=== PATIENT | female | born 1960 | race Caucasian/White ===

== ENCOUNTER 2018-03-27 11:36 | Emergency (ER) | payer OTHER ==
[~2018-03-27] VITALS: Ht 152.4 cm; Wt 56.7 kg
[~2018-03-27 11:36] MED LIST: NORVASC2.5 M1
[2018-03-27] MEDS ORDERED: SINGULAIR10 MG (12:00)
== END 2018-03-27 14:22 | disposition home or self-care (01) ==
LOC: ER 11:36
DX: N39.0 Urinary tract infection, site not specified (principal)

== ENCOUNTER 2018-04-11 08:17 | Outpatient (CLI) | payer OTHER ==
[~2018-04-11 08:17] MED LIST changes: +SINGULAIR10 MG
== END 2018-04-11 08:30 | disposition home or self-care (01) ==
LOC: TOM 08:17
DX: N20.0 Calculus of kidney (principal); N39.0 Urinary tract infection, site not specified

== ENCOUNTER 2018-10-31 12:18 | Outpatient (CLI) | payer OTHER | END 2018-10-31 12:28 | disposition home or self-care (01) | LOC: RAD 12:18 | DX: N20.0 Calculus of kidney (principal) ==

== ENCOUNTER 2018-11-19 10:08 | Day surgery (SDC) | payer OTHER ==
[2018-11-20] MEDS ORDERED: CIPRO500 MG PO (20:10)
== END 2018-11-19 18:30 | disposition home or self-care (01) ==
LOC: CIR.AMB 10:08
DX: N20.0 Calculus of kidney (principal); N20.1 Calculus of ureter

== ENCOUNTER 2018-11-20 19:41 | Emergency (ER) | payer OTHER ==
[~2018-11-20] VITALS: Ht 152.4 cm; Wt 56.7 kg
[2018-11-20] MEDS ORDERED: CIPRO500 MG PO (20:10)
== END 2018-11-21 10:45 | disposition home or self-care (01) ==
LOC: ER 19:41
DX: R50.82 Postprocedural fever (principal)

== ENCOUNTER → 2018-11-24 11:49 | Outpatient (CLI) | payer OTHER ==
[~2018-11-24 11:49] MED LIST changes: +CIPRO500 MG PO
== END | disposition home or self-care (01) ==
LOC: LAB 11:49
DX: D62 Acute posthemorrhagic anemia (principal)

== ENCOUNTER 2019-01-08 13:35 | Outpatient (CLI) | payer OTHER | END 2019-01-08 13:44 | disposition home or self-care (01) | LOC: RAD 13:35 | DX: N20.0 Calculus of kidney (principal) ==

== ENCOUNTER → 2019-01-08 17:15 | Outpatient (CLI) | payer OTHER | END | disposition home or self-care (01) | LOC: LAB 17:15 | DX: N30.00 Acute cystitis without hematuria (principal) ==

== ENCOUNTER → 2019-01-15 15:37 | Outpatient (CLI) | payer OTHER | END | disposition home or self-care (01) | LOC: LAB 15:37 | DX: N30.10 Interstitial cystitis (chronic) without hematuria (principal) ==

== ENCOUNTER → 2020-06-02 11:25 | Outpatient (CLI) | payer OTHER | END | disposition home or self-care (01) | LOC: LAB 11:25 | PROVIDERS: ATTEND Urology | DX: N30.00 Acute cystitis without hematuria (principal); B96.29 Other Escherichia coli [E. coli] as the cause of diseases classified elsewhere ==

== ENCOUNTER 2020-06-07 09:06 | Outpatient (CLI) | payer OTHER | END 2020-06-07 09:19 | disposition home or self-care (01) | LOC: RAD 09:06 | PROVIDERS: ATTEND Urology | DX: N20.0 Calculus of kidney (principal); N20.1 Calculus of ureter; I10 Essential (primary) hypertension ==

== ENCOUNTER 2020-06-07 11:41 | Outpatient (CLI) | payer OTHER | END 2020-06-07 11:52 | disposition home or self-care (01) | LOC: LAB 11:41 | PROVIDERS: ATTEND Urology | DX: N20.1 Calculus of ureter (principal); I10 Essential (primary) hypertension ==

== ENCOUNTER 2020-06-15 08:50 | Day surgery (SDC) | payer OTHER | END 2020-06-15 14:50 | disposition home or self-care (01) | LOC: CIR.AMB 08:50 | PROVIDERS: ATTEND Urology | DX: N20.1 Calculus of ureter (principal); Z20.822 Contact with and (suspected) exposure to COVID-19 ==

== ENCOUNTER → 2020-06-20 15:06 | Outpatient (CLI) | payer OTHER | END | disposition home or self-care (01) | LOC: LAB 15:06 | PROVIDERS: ATTEND Urology | DX: N30.00 Acute cystitis without hematuria (principal) ==

== ENCOUNTER 2020-06-20 15:31 | Outpatient (CLI) | payer OTHER | END 2020-06-20 15:44 | disposition home or self-care (01) | LOC: RAD 15:31 | DX: N20.1 Calculus of ureter (principal) ==

== ENCOUNTER 2022-01-01 09:00 | Inpatient (IN) | payer OTHER ==
[~2022-01-01] VITALS: Ht 162.6 cm; Wt 68.0 kg
[2022-01-03] MEDS ORDERED: FLONASE16 GM (08:38)
[2022-01-05] MEDS ORDERED: INTESTINEX680 M1 PO (14:06)
[2022-01-05] MEDS ORDERED: ZOFRAN8 MG PO (14:06)
[2022-01-05] MEDS ORDERED: CIPRO500 MG PO (14:06)
[2022-01-05] MEDS ORDERED: METRONIDAZOLE500 MG PO (14:06)
== END 2022-01-05 16:53 | disposition home or self-care (01) | DRG 392 ==
LOC: ER 09:00 → MEDJ 20:17 → MEDI 20:17 → MEDJ 20:28
PROVIDERS: ADMIT Internal Medicine; ATTEND Internal Medicine
PROC: BW21YZZ Computerized Tomography (CT Scan) of Abdomen and Pelvis using Other Contrast (ICD-10-PCS; principal; 2022-01-01)
DX: K57.32 Diverticulitis of large intestine without perforation or abscess without bleeding (principal); E86.0 Dehydration; K59.09 Other constipation; K21.9 Gastro-esophageal reflux disease without esophagitis; Z20.822 Contact with and (suspected) exposure to COVID-19; I10 Essential (primary) hypertension; J45.998 Other asthma; N20.0 Calculus of kidney

== ENCOUNTER 2022-05-09 12:47 | Emergency (ER) | payer OTHER ==
[~2022-05-09] VITALS: Ht 152.4 cm; Wt 58.1 kg
[~2022-05-09 12:47] MED LIST changes: +FLONASE16 GM; +INTESTINEX680 M1 PO; +METRONIDAZOLE500 MG PO; +ZOFRAN8 MG PO
== END 2022-05-09 21:06 | disposition left against medical advice (07) ==
LOC: ER 12:47
DX: N23 Unspecified renal colic (principal)

== ENCOUNTER 2022-07-17 16:41 | Emergency (ER) | payer OTHER ==
[~2022-07-17] VITALS: Ht 152.4 cm; Wt 56.2 kg
[2022-07-17] MEDS ORDERED: PEPCID AC20 MG PO (20:40)
[2022-07-17] MEDS ORDERED: METRONIDAZOLE500 MG PO (20:40)
[2022-07-17] MEDS ORDERED: CIPRO500 MG PO (20:40)
== END 2022-07-17 22:21 | disposition home or self-care (01) ==
LOC: ER 16:41
DX: K57.92 Diverticulitis of intestine, part unspecified, without perforation or abscess without bleeding (principal); Z87.442 Personal history of urinary calculi; J45.909 Unspecified asthma, uncomplicated; I10 Essential (primary) hypertension; K57.32 Diverticulitis of large intestine without perforation or abscess without bleeding; N20.0 Calculus of kidney; K80.20 Calculus of gallbladder without cholecystitis without obstruction

== ENCOUNTER 2024-05-11 09:48 | Emergency (ER) | payer OTHER ==
[~2024-05-11] VITALS: Ht 154.9 cm; Wt 56.7 kg
[~2024-05-11 09:48] MED LIST changes: +PEPCID AC20 MG PO
[2024-05-11] MEDS ORDERED: DIATRIZOATE MEGLUMINE, SODIUM 30 ML BOTTLE ONE (12:09)
[2024-05-11 13:29] LABS: PH,URINE 6.5 (5.0-8.0); URINE APPEARANCE Clear; URINE BILIRRUBIN Negative (NEGATIVE); URINE BLOOD Negative; URINE COLOR Yellow; URINE GLUCOSE Negative (NEGATIVE); URINE KETONE Negative (NEGATIVE); URINE LEUKOCYTE Negative; URINE NITRATE Negative; URINE PROTEIN Negative (NEGATIVE); URINE UROBILINOGEN 0.2 E.U./dl
[2024-05-11 13:32] LABS: HEMATOCRIT 39.2 % (36.0-45.00); HEMOGLOBIN 13.1 g/dL (12.0-15.00); MEAN CELL VOLUME 84.2 fL (80.00-100.00); MEAN CORPUSCULAR HEMOGLOBIN 28.1 pg (27.00-32.0); MEAN CORPUSCULAR HGB CONC 33.3 g/dl (32.0-36.0); PLATELET COUNT 298 K/uL (150-450); RED BLOOD COUNT 4.66 M/uL (4.00-6.00); RED CELL DISTRIBUTION WIDTH 14.4 % (11.5-14.5)
[2024-05-11 13:34] LABS: URINE EPITHELIAL CELLS 3.4 uL (0.0-38.8); URINE RBC 5.5 uL (0.0-20.8); URINE WBC 6.6 uL (0.0-23.2)
[2024-05-11 13:43] LABS: URINE BACTERIA 2.4 uL (0.0-1933); URINE CAST 0.14 uL (0.0-1.40)
[2024-05-11 16:46] LABS: CALCIUM 9.1 mg/dL (8.5-10.1); CREATININE SERUM 0.62 mg/dL (0.55-1.02); GFR 96.6; POTASSIUM 3.08 mEq/L (3.5-5.1)
[2024-05-11] MEDS ORDERED: FAMOTIDINE/PF 20 MG in 0.9 % SODIUM CHLORIDE 8 ML IV PUSH STA (17:38)
[2024-05-11] MEDS ORDERED: CIPRO500 MG PO (17:43)
[2024-05-11] MEDS ORDERED: METRONIDAZOLE500 MG PO (17:43)
[2024-05-11] MEDS ORDERED: LEVSIN/SL0.125 MG SL (17:43)
[2024-05-11] MEDS ORDERED: PROTONIX40 MG PO (17:43)
[2024-05-11] MEDS ORDERED: PIPERACILLIN/TAZOBACTAM SODIUM 3.375 GM VIAL IV ONE ×2 (17:45→17:47)
[2024-05-11] MEDS ORDERED: FAMOTIDINE/PF 20 MG/2 ML VIAL ONE (17:47)
== END 2024-05-11 18:00 | disposition home or self-care (01) ==
LOC: ER 09:51
PROVIDERS: Emergency Medicine
DX: K57.32 Diverticulitis of large intestine without perforation or abscess without bleeding (principal); J45.909 Unspecified asthma, uncomplicated; I10 Essential (primary) hypertension; N20.0 Calculus of kidney; K80.20 Calculus of gallbladder without cholecystitis without obstruction
CPT/HCPCS: 36415; 74177; Q9965